=== PATIENT | female | born 1955 | race Two or more races ===

== ENCOUNTER 2024-01-28 06:25 | Inpatient (IN) | payer OTHER ==
[~2024-01-28] VITALS: Ht 177.8 cm; Wt 114.0 kg
[~2024-01-28 06:25] MED LIST: ALLO300T2 PO; AMIT10TA12 PO; ATOR10TA PO; DILT-29 PO; DULO20CA PO; GABA300T4 PO; HYDR-4795 PO; ISOS1TAB28 PO; METO25TA36 PO
[2024-01-28] MEDS: EPINEPHrine HCL 1 MG/1 ML AMP ONE ×2 (06:39→09:17)
[2024-01-28] MEDS: DexAMETHasone SOD PHOS 4 MG/1ML SDV INJ ONE (06:39)
[2024-01-28] MEDS: TRANEXAMIC ACID 20 ML ONE (06:48)
[2024-01-28] MEDS ORDERED: GLYCOPYRROLATE 0.2 MG/ML 1ML VIAL ONE (06:49)
[2024-01-28] MEDS ORDERED: PROPOFOL 10 MG/ML 20 ML IV ONE ×2 (06:49→08:24)
[2024-01-28] MEDS ORDERED: ONDANSETRON HCL 4 MG/2 ML VIAL ONE (06:52)
[2024-01-28] MEDS ORDERED: DexAMETHasone SOD PHOS 10MG/1ML VIAL INJ ONE (06:52)
[2024-01-28] MEDS ORDERED: LIDOCAINE 1% INJ PF 5ML AMP ONE (06:52)
[2024-01-28] MEDS ORDERED: KETOROLAC TROMETH 30 MG/ML 1ML VIAL ONE (06:52)
[2024-01-28] MEDS: ACETAMINOPHEN IV 100 ML IV ONE (06:56)
[2024-01-28] MEDS ORDERED: GABAPENTIN 400 MG CAP PO ONE (07:00)
[2024-01-28] MEDS: GABAPENTIN 400 MG CAP ONE (07:03)
[2024-01-28] MEDS: ceFAZolin 2 GM/D5W50ml 50 ML IV ONE (07:03)
[2024-01-28] MEDS: CELECOXIB 100 MG CAP ONE (07:03)
[2024-01-28] MEDS: CELECOXIB 100 MG CAP PO ONE (07:10)
[2024-01-28] MEDS: ACETAMINOPHEN IV 1000 MG/100ML (10MG/ML) IV ONE (07:10)
[2024-01-28] MEDS: GABAPENTIN 300 MG CAP ONE (07:13)
[2024-01-28] MEDS: GABAPENTIN 300 MG CAP PO ONE (07:15)
[2024-01-28] MEDS ORDERED: KETAMINE 50mg/ML 1ml syringe ONE (07:19)
[2024-01-28] MEDS ORDERED: SODIUM CHLORIDE LOCK 10 ML ONE (07:34)
[2024-01-28] MEDS ORDERED: ePHEDrine SULFATE 50 MG/ML AMP ONE (07:44)
[2024-01-28] MEDS: VANCOMYCIN HCL 1000 MG VL ONE (09:10)
[2024-01-28] MEDS: ROPIVACAINE 0.5% (5MG/ML) 20ML AMPULE IJ ONE (09:20)
[2024-01-28 09:44] VITALS: RESP 14; O2SAT 95
[2024-01-28] MEDS ORDERED: MORPHINE SULFATE INJ 2 MG/ml SYRG IV PRN (09:45)
[2024-01-28] MEDS ORDERED: ONDANSETRON HCL 4 MG/2 ML VIAL IV PRN ×2 (09:45→10:00)
[2024-01-28] MEDS ORDERED: NITROGLYCERIN 0.4 MG SL TAB SL PRN (09:45)
[2024-01-28] MEDS ORDERED: fentaNYL CITRATE 100 MCG/2 ML VL IV PRN (10:00)
[2024-01-28] MEDS ORDERED: FLUMAZENIL 0.1 MG/ML INJ 10ML MDV IV PRN (10:00)
[2024-01-28] MEDS ORDERED: ePHEDrine SULFATE 50 MG/ML AMP IV PRN (10:00)
[2024-01-28] MEDS ORDERED: ALLOPURINOL 300 MG PO SCH (10:00)
[2024-01-28] MEDS ORDERED: hydrALAZINE HCL 20 MG/ML VL IV PRN (10:00)
[2024-01-28] MEDS ORDERED: oxyCODONE HCL 5MG TAB PO PRN (10:00)
[2024-01-28] MEDS ORDERED: LABETALOL HCL 5 MG/ML 4ML SYRINGE IV PRN (10:00)
[2024-01-28] MEDS ORDERED: NALOXONE HCL 0.4 MG/ML VIAL IV PRN (10:00)
[2024-01-28] MEDS: HYDROmorphone HCL 2 MG/ML VL/or syr IV PRN (12:58)
[2024-01-28] MEDS: oxyCODONE HCL 5MG TAB PO PRN (13:16)
[2024-01-28] MEDS: HYDROmorphone HCL 2 MG/ML VL/or syr ONE (13:24)
[2024-01-28] MEDS: ceFAZolin 2 GM/D5W50ml 50 ML IV SCH (14:20)
[2024-01-28 15:55] VITALS: BP_SYST 102; BP_DIAS 55; BP_DIAS 58; PULSE 64; RESP 18; TEMP 98.1; O2SAT 97
[2024-01-28] MEDS: ACETAMINOPHEN 325 MG TAB PO SCH (18:00)
[2024-01-28] MEDS: KETOROLAC TROMETH 30 MG/ML 1ML VIAL IV SCH (18:04)
[2024-01-28 20:30] VITALS: BP 101/55; PULSE 72; PULSE 75; RESP 18; TEMP 98.4; O2SAT 97
[2024-01-28] MEDS: PREGABALIN 25 MG CAP PO SCH (21:50)
[2024-01-28] MEDS: AMITRIPTYLINE HCL 10 MG TAB PO SCH (21:52)
[2024-01-28 22:00] VITALS: BP 101/55; PULSE 75; RESP 18; TEMP 98.4; O2SAT 97
[2024-01-28] MEDS: SODIUM CHLORIDE 0.9% 1,000 ML IV SCH (22:23)
[2024-01-29] VITALS (8 sets, daily range): BP systolic 97–136; BP diastolic 48–74; PULSE 64–88; RESP 18–20; TEMP 79.6–98.3; O2SAT 95–99
[2024-01-29 06:33] LABS: Basophils # (auto) 0 10 ^3/uL (0-0.2); Eosinophils # (auto) 0 10 ^3/uL (0-0.8); Hematocrit 26.5 % (36.0-46.0); Hemoglobin 8.9 g/dL (12.2-16.2); Lymphocytes % (auto) 9.1 % (10.0-50.0); Mean Corpuscular Hemoglobin 32.1 pg (28.0-32.0); Mean Corpuscular Hgb Conc. 33.6 g/dL (32.0-36.0); Mean Corpuscular Volume 95.4 fL (80.0-100.0); Monocytes # (auto) 0.5 10 ^3/uL (0-1.3); Monocytes % (auto) 4.2 % (0.0-12.0); Neutrophils # (auto) 9.3 10 ^3/uL (1.6-8.6); Neutrophils % (auto) 86.7 % (37.0-80.0); Red Blood Cells 2.77 10^6/uL (4.0-5.20); Red Cell Distribution Width 13.7 % (11.8-14.3); White Blood Cell 10.8 10^3/uL (4.4-10.8)
[2024-01-29 06:37] LABS: Chloride 112 mmol/L (98-107); Potassium 4.9 mmol/L (3.5-5.1); Sodium 142 mmol/L (136-145)
[2024-01-29 06:38] LABS: Anion Gap 4 (5-15); Calcium 8.8 mg/dL (8.5-10.1); Carbon Dioxide 26 mmol/L (20-30)
[2024-01-29 06:43] LABS: BUN/Creatinine Ratio 19.8 (10.0-20.0); Blood Urea Nitrogen 21 mg/dL (9-23); Glucose 168 mg/dL (74-106)
[2024-01-29] MEDS: ALLOPURINOL 100 MG TAB PO SCH (08:09)
[2024-01-29] MEDS: APIXABAN 2.5 MG TAB PO SCH (09:14)
[2024-01-30] VITALS (7 sets, daily range): BP systolic 109–159; BP diastolic 50–96; PULSE 64–92; RESP 17–20; TEMP 97.6–99.3; O2SAT 92–100
[2024-01-30] MEDS: oxyCODONE HCL 5MG TAB PO PRN (04:30)
[2024-01-31] VITALS (13 sets, daily range): BP systolic 117–156; BP diastolic 52–96; PULSE 65–96; RESP 16–20; TEMP 97.5–99; O2SAT 85–100
[2024-01-31 13:40] LABS: Basophils # (auto) 0.1 10 ^3/uL (0-0.2); Basophils % (auto) 0.7 % (0.0-2.0); Eosinophils # (auto) 0.3 10 ^3/uL (0-0.8); Eosinophils % (auto) 3.1 % (0.0-7.0); Hematocrit 30.4 % (36.0-46.0); Lymphocytes # (auto) 3.3 10 ^3/uL (0.4-5.4); Lymphocytes % (auto) 35.2 % (10.0-50.0); Mean Corpuscular Hemoglobin 31.2 pg (28.0-32.0); Mean Corpuscular Hgb Conc. 32.9 g/dL (32.0-36.0); Mean Corpuscular Volume 94.9 fL (80.0-100.0); Monocytes # (auto) 0.6 10 ^3/uL (0-1.3); Neutrophils # (auto) 5.1 10 ^3/uL (1.6-8.6); Red Cell Distribution Width 14.1 % (11.8-14.3); White Blood Cell 9.3 10^3/uL (4.4-10.8)
[2024-01-31] MEDS ORDERED: IOHEXOL 350 MG/ML 100ML IJ ONE (16:38)
[2024-01-31] MEDS: SODIUM CHLORIDE 0.9% 1,000 ML IV SCH (17:00)
[2024-01-31] MEDS ORDERED: LACTULOSE 20Gm/30ML SOLN PO PRN (17:00)
[2024-01-31] MEDS: IPRATROPIUM BROM 0.5 MG/2.5ML INH SOL NEB PRN (20:30)
[2024-01-31] MEDS: ALBUTEROL SULF 2.5 MG/0.5ML(0.5%) NEB SOLN NEB PRN (20:30)
[2024-01-31] MEDS: DULoxetine HCL 30 MG CAP PO SCH (21:56)
[2024-01-31] MEDS: SENNA 8.6 MG TAB PO SCH (21:56)
[2024-01-31] MEDS: ATORVASTATIN 20 MG TAB PO SCH (21:56)
[2024-01-31] MEDS: METOPROLOL TARTRATE 25 MG TAB PO SCH (21:58)
[2024-02-01] VITALS (8 sets, daily range): BP systolic 118–143; BP diastolic 63–86; PULSE 69–83; RESP 16–22; TEMP 97.7–98.3; O2SAT 96–99
[2024-02-01 06:06] LABS: Basophils # (auto) 0 10 ^3/uL (0-0.2); Basophils % (auto) 0.5 % (0.0-2.0); Eosinophils # (auto) 0.5 10 ^3/uL (0-0.8); Eosinophils % (auto) 4.6 % (0.0-7.0); Hematocrit 31.7 % (36.0-46.0); Hemoglobin 10.4 g/dL (12.2-16.2); Lymphocytes # (auto) 2.9 10 ^3/uL (0.4-5.4); Lymphocytes % (auto) 28.6 % (10.0-50.0); Mean Corpuscular Hemoglobin 31.7 pg (28.0-32.0); Mean Corpuscular Hgb Conc. 32.9 g/dL (32.0-36.0); Mean Corpuscular Volume 96.4 fL (80.0-100.0); Monocytes # (auto) 0.9 10 ^3/uL (0-1.3); Monocytes % (auto) 9.3 % (0.0-12.0); Neutrophils # (auto) 5.8 10 ^3/uL (1.6-8.6); Nucleated Red Blood Cells % 0.1 %; Red Blood Cells 3.29 10^6/uL (4.0-5.20); White Blood Cell 10.2 10^3/uL (4.4-10.8)
[2024-02-01 06:14] LABS: Chloride 109 mmol/L (98-107); Sodium 142 mmol/L (136-145)
[2024-02-01 06:15] LABS: Anion Gap 5 (5-15); Calcium 9.2 mg/dL (8.7-10.4); Carbon Dioxide 28 mmol/L (20-30)
[2024-02-01 06:20] LABS: BUN/Creatinine Ratio 16.8 (10.0-20.0); Blood Urea Nitrogen 16 mg/dL (9-23); Glucose 95 mg/dL (74-106)
== END 2024-02-01 18:34 | DRG 469 ==
LOC: SUR 06:25 → OVERFLOW 09:37 → CENTRAL 16:03 → TELE-CENTR 16:04
PROVIDERS: ADMIT Orthopaedic Surgery; ATTEND Orthopaedic Surgery
PROC: 0SR906Z Replacement of Right Hip Joint with Oxidized Zirconium on Polyethylene Synthetic Substitute, Open Approach (ICD-10-PCS; principal; 2024-01-28 07:23)
DX: M16.11 Unilateral primary osteoarthritis, right hip (principal); J96.01 Acute respiratory failure with hypoxia; D62 Acute posthemorrhagic anemia; E78.00 Pure hypercholesterolemia, unspecified; F32.A Depression, unspecified; I10 Essential (primary) hypertension; Z88.0 Allergy status to penicillin
CPT/HCPCS: 36415; 71275; 72170; 73501; 80048; 85025; 86850; 86900; 86901; 87081; 94640; 97110; 97116; 97163; 97530; G0378; J0131; J0171; J1100; J1885; J2405; J2704

== ENCOUNTER 2025-05-11 09:58 | Inpatient (IN) | payer OTHER ==
[~2025-05-11] VITALS: Ht 177.8 cm; Wt 106.0 kg
[2025-05-11] VITALS (8 sets, daily range): BP systolic 96–131; BP diastolic 61–72; PULSE 68–106; RESP 14–20; TEMP 97.2–98.2; O2SAT 92–100
[~2025-05-11 09:58] MED LIST changes: +ACET500C49 PO; +ALBU1AER4 IN; +ALBUAER3 IN; +ASCO500T11 PO; +ASPI81CH59 PO; +B-CO1CAP18 PO; +CHOL20007 PO; +CYCL-837 PO; +FLUT250M2 INH; +LISI2.5T47 PO
[2025-05-11] MEDS ORDERED: MIDAZOLAM HCL 2MG/2ML 2ml VIAL (1mg/ml) ONE (10:20)
[2025-05-11] MEDS ORDERED: PROPOFOL 10 MG/ML 20 ML IV ONE (10:20)
[2025-05-11] MEDS ORDERED: fentaNYL CITRATE 100 MCG/2 ML VL ONE (10:20)
[2025-05-11] MEDS ORDERED: MORPHINE SULF PF 5 MG/10 ML VIAL ONE (10:41)
[2025-05-11] MEDS ORDERED: ACETAMINOPHEN 325 MG TAB PO PRN (13:45)
--- NOTE | 2025-05-11 13:45 | DVHOP2 ---
Operative Report - 2 Report Details Date: 05/11/25 Preop Diagnosis: Right knee degenerative arthritis Postop Diagnosis: Right knee degenerative arthritis Surgeon: Thao Lee MD Airborne Weapons Technical Manager: Cady BEASLEY Anesthesiologist: Gisell Anesthesia: Regional Drains: Siobhan closed wound suction Implant: DonJoy knee size eight femur PS, size seven tibial base plate, size 14 polyethylene, size 32 patella Consent: The patient was informed of the risks and benefits of the procedure. These include but are not limited to complications of anesthesia, postoperative infection, incomplete relief of symptoms, recurrence of symptoms, damage to blood vessels, nerves and tendons, deep venous thrombosis, pulmonary embolism and possible need for repeat surgery in the future. Complications: None Estimated Blood Loss: 100 cc Fluids: See anesthesia record Findings: Denuded cartilage with eburnated bone, osteophytes Indications for Surgery: Right knee degenerative arthritis with severe pain and functional impairment despite nonoperative management Name of Procedure Performed Right total knee arthroplasty Procedure Details Procedure Details: The patient was brought to the operating room and placed on the table in the supine position after being given spinal anesthetic with adequate analgesia obtained. Surgical timeout was performed verifying patient, laterality and procedure Preop patient received IV cefepime IV Ancef and IV tranexamic acid. Tourniquet was applied to the lower extremity. Lower extremity was prepped and draped in sterile fashion. Extremity was elevated, exsanguinated Esmarch, and tourniquet inflated. Midline incision was made followed by medial arthrotomy. I exposed the anterior medial and lateral tibial plateau and the anterior distal femur. Bovie and aqua mantis were used for hemostasis. I excised the anterior meniscal tissue with Bovie. I excised a portion of the fat pad with Bovie. The patella was everted and the knee flexed. I drilled the distal femur and suctioned the hole to reduce the risk of fat emboli. I inserted intramedullary guide with 5 degree valgus setting. I pinned the distal femoral cutting block anteriorly. Intramedullary gisell was removed. Distal femoral cut was made and the block removed. I brought my attention to the tibia setting up the external cutting jig for the tibia paying attention to slope, rotation and varus valgus alignment. I set the depth and pinned the block. I used the external alignment gisell to aid in checking alignment. Bone cut was made and bone removed releasing soft tissue attachments with Bovie. Cutting block removed. I then checked the extension gap and deemed adequate and removed the femur and tibia pins. I flexed the knee and applied the femoral sizing guide to the femur. I checked the size and external rotation setting at 90 degrees to Whitesides line and checking the epicondylar axis. I drilled the holes then removed the sizing guide and pin. I then tapped on the 4 in 1 cutting block and checked with the maddie wing anteriorly to make sure that I would not notch then pinned the block. Cuts were made and the block and pins were removed. Bone was removed with curved osteotome. I used a rongeur to remove any remaining osteophytes at the femur and tibia. I then used a lamina aircraft pneudraulics repairer to open up the back alternating between the medial and lateral side. Any remaining meniscal tissue was excised with scalpel. I used curved osteotome, curette and rongeur to remove any posterior osteophytes. I prophylactically coagulated with aqua mantis. I then tapped on the template for the box cut and pinned it. Box cut was made and bone removed. Template and pin removed. I then tapped on the femoral trial. I then brought my attention back to the tibia sizing it. I used the external alignment gisell to make sure that rotation and alignment were good. I made a Bovie clint at the tibial tray clint identifying rotation for later use. I tried various tibial polytrials. [I then brought my attention to the patella. I sequentially dissected soft tissue with Bovie. I checked the thickness with caliper. I set the appropriate depth of cut on the cutting guide. I attached the cutting guide made my cut. I then sized the patella and made my drill holes. I then placed the patella trial with appropriate depth based on overall precut thickness. ] The patella tracked nicely without thumb pressure. I removed the trials. I pinned the tray and used the reamer and keel punch. The implants were brought into the field while bone preparation was started. I used both normal saline irrigation and the CarboJet to prepare the bone. I used the bone from the cuts to graft the femoral tunnel. Once cement was ready I applied cement to the tibial implant and tibial bone tapped it on and removed excess cement in usual fashion. In similar fashion I tapped on the femoral implant. I inserted the trial polyethylene and brought the knee into 30 degrees flexion. [I then applied the patella implant in similar fashion holding pressure with the pressurization device.] I irrigated with bactisurge irrigant. Once cement cured, I checked stability and range of motion as well as patella tracking. tourniquet was released and hemostasis maintained with aqua mantis. I inserted the polyethylene and again checked stability. I used a 2 grams of vancomycin half of which was placed deep and half superficial. I repaired the extensor mechanism with the knee in flexion with #1 Ethibond interrupted [id number]. Deep subcutaneous tissue was closed with 0 Vicryl. Superficial subcutaneous tissue was closed with 2-0 vicryl interrupted. Skin was closed with niya. I then applied the [siobhan closed wound suction]. Patient tolerated the procedure well and was brought to recovery room in stable condition. Condition Stable Disposition Still a Patient THAO LEE MD May 11, 2025 13:45
[2025-05-11] MEDS ORDERED: ALBUTEROL SULF HFA 90MCG INH 200DOSE IN SCH (14:00)
[2025-05-11] MEDS ORDERED: ONDANSETRON ODT 4 MG TAB PO PRN (14:00)
[2025-05-11] MEDS ORDERED: ceFAZolin 2 GM/D5W50ml 50 ML IV SCH (14:00)
--- NOTE | 2025-05-11 14:41 | DVH ---
EXAM: XY R KNEE 3V XRAY CLINICAL INDICATION: Postop TECHNIQUE: XY R KNEE 3V XRAY Comparison: XR KNEE RIGHT 3 VIEW on DOS: 01/29/25, CR KNEE RIGHT 4-5 VIEW on DOS: 03/26/24 FINDINGS/IMPRESSION: Right total knee arthroplasty. Surgical skin niya. Soft tissue swelling
[2025-05-11] MEDS: ROPIVACAINE 0.5% (5MG/ML) 20ML AMPULE IJ ONE ×2 (15:02→15:06)
[2025-05-11] MEDS: KETOROLAC TROMETH 30 MG/ML 1ML VIAL ONE (15:03)
[2025-05-11] MEDS: TRANEXAMIC ACID 20 ML ONE (15:04)
[2025-05-11] MEDS: VANCOMYCIN HCL 1000 MG VL ONE (15:04)
[2025-05-11] MEDS: BUPIVACAINE 0.25% INJ 50ML VIAL ONE (15:05)
[2025-05-11] MEDS: ceFAZolin 2 GM/D5W50ml 50 ML IV ONE (15:05)
[2025-05-11] MEDS: CEFEPIME 1GM/50ML 50 ML IV ONE (15:05)
[2025-05-11] MEDS ORDERED: ONDANSETRON HCL 4 MG/2 ML VIAL IV PRN (16:15)
[2025-05-11] MEDS ORDERED: NALOXONE HCL 0.4 MG/ML VIAL IV PRN (16:15)
[2025-05-11] MEDS ORDERED: FLUMAZENIL 0.1 MG/ML INJ 10ML MDV IV PRN (16:15)
[2025-05-11] MEDS ORDERED: fentaNYL CITRATE 100 MCG/2 ML VL IV PRN (16:15)
[2025-05-11] MEDS ORDERED: hydrALAZINE HCL 20 MG/ML VL IV PRN (16:15)
[2025-05-11] MEDS: HYDROmorphone HCL 2 MG/ML VL/or syr ONE (16:20)
[2025-05-11] MEDS: HYDROmorphone HCL 2 MG/ML VL/or syr IV PRN (16:25)
[2025-05-11] MEDS: ALBUTEROL SULF 2.5 MG/0.5ML(0.5%) NEB SOLN NEB PRN (16:54)
[2025-05-11] MEDS: D5W/LACTATED RINGERS 1,000 ML IV SCH (17:00)
[2025-05-11] MEDS: ACETAMINOPHEN 325 MG TAB PO SCH (18:00)
[2025-05-11] MEDS: AMITRIPTYLINE HCL 10 MG TAB PO SCH (18:00)
[2025-05-11] MEDS: ceFAZolin 2 GM/D5W50ml 50 ML IV SCH (20:00)
[2025-05-11] MEDS: PREGABALIN 25 MG CAP PO SCH (21:52)
[2025-05-11] MEDS ORDERED: ISOSORBIDE MONONITRATE 20 MG TAB PO SCH (22:00)
[2025-05-11] MEDS: ISOSORBIDE MONONITRATE 20 MG TAB PO SCH (22:00)
[2025-05-12] VITALS (10 sets, daily range): BP systolic 117–151; BP diastolic 80–89; PULSE 80–106; RESP 17–22; TEMP 97.3–99.3; O2SAT 88–100
[2025-05-12] MEDS: KETOROLAC TROMETH 30 MG/ML 1ML VIAL IV ONE (00:07)
[2025-05-12] MEDS: LORazepam 0.5 MG TAB PO PRN (00:20)
[2025-05-12] MEDS: ceFAZolin 2 GM/D5W50ml 50 ML IV SCH (00:27)
[2025-05-12 06:38] LABS: Hematocrit 30.4 % (36.0-46.0); Hemoglobin 10.4 g/dL (12.2-16.2); Mean Corpuscular Hemoglobin 32.4 pg (28.0-32.0); Mean Corpuscular Volume 94.6 fL (80.0-100.0); Nucleated Red Blood Cells % 0.0 %
[2025-05-12 06:40] LABS: Anion Gap 7 (5-15); Carbon Dioxide 28 mmol/L (20-31); Chloride 105 mmol/L (98-107); Potassium 5.0 mmol/L (3.5-5.1); Sodium 140 mmol/L (136-145)
[2025-05-12 06:42] LABS: Calcium 9.1 mg/dL (8.7-10.4)
[2025-05-12 06:46] LABS: BUN/Creatinine Ratio 13.6 (10.0-20.0); Blood Urea Nitrogen 17 mg/dL (9-23)
[2025-05-12 06:47] LABS: Glucose 135 mg/dL (74-106)
[2025-05-12] MEDS: ALLOPURINOL 100 MG TAB PO SCH (09:42)
[2025-05-12] MEDS ORDERED: ALLOPURINOL 300 MG PO SCH (10:00)
[2025-05-12] MEDS ORDERED: METOPROLOL SUCCINATE XL 50 MG TAB PO SCH ×2 (10:00)
--- NOTE | 2025-05-12 12:35 | DVHDS2 ---
Discharge Summary Date of Admission May 11, 2025 at 13:41 Date of Discharge: May 12, 2025 Labs/Diagnostic Data: Laboratory Results Test 05/12/25 04:43 White Blood Count 8.1 10^3/uL (4.4-10.8) Red Blood Count 3.21 10^6/uL (4.0-5.20) Hemoglobin 10.4 g/dL (12.2-16.2) Hematocrit 30.4 % (36.0-46.0) Mean Corpuscular Volume 94.6 fL (80.0-100.0) Mean Corpuscular Hemoglobin 32.4 pg (28.0-32.0) Mean Corpuscular Hemoglobin Concent 34.2 g/dL (32.0-36.0) Red Cell Distribution Width 14.1 % (11.8-14.3) Platelet Count 208 10^3/uL (140-450) Mean Platelet Volume 9.9 fL (6.9-10.8) Neutrophils (%) (Auto) 60.3 % (37.0-80.0) Lymphocytes (%) (Auto) 26.7 % (10.0-50.0) Monocytes (%) (Auto) 9.5 % (0.0-12.0) Eosinophils (%) (Auto) 2.9 % (0.0-7.0) Basophils (%) (Auto) 0.6 % (0.0-2.0) Neutrophils # (Auto) 4.9 10 ^3/uL (1.6-8.6) Lymphocytes # (Auto) 2.2 10 ^3/uL (0.4-5.4) Monocytes # (Auto) 0.8 10 ^3/uL (0-1.3) Eosinophils # (Auto) 0.2 10 ^3/uL (0-0.8) Basophils # (Auto) 0 10 ^3/uL (0-0.2) Nucleated Red Blood Cells 0.0 % Sodium Level 140 mmol/L (136-145) Potassium Level 5.0 mmol/L (3.5-5.1) Chloride Level 105 mmol/L (98-107) Carbon Dioxide Level 28 mmol/L (20-31) Anion Gap 7 (5-15) Blood Urea Nitrogen 17 mg/dL (9-23) Creatinine 1.25 mg/dL (0.550-1.02) Glomerular Filtration Rate Calc 47 mL/min (>90) BUN/Creatinine Ratio 13.6 (10.0-20.0) Serum Glucose 135 mg/dL (74-106) Calcium Level 9.1 mg/dL (8.7-10.4) Other Laboratory Tests 05/12/25 04:43 Brief Hx & Hospital Course: Patient was brought to the hospital yesterday to undergo a right total knee arthroplasty. She tolerated the procedure well without complications and was kept overnight for postoperative observation. Patient has remained medically stable denying any overnight events although she does reports severe postoperative knee pain that is limiting her physical activity and ability to ambulate. Patient notes that she has tried performing gentle [id number] exercise in bed but is limited due to the pain. Patient reports that she has not yet been able to get up and walk with the help of physical therapy as she was still feeling the effects of her spinal anesthesia yesterday afternoon. Patient expressed her wishes to be transferred to a nursing home facility for further assistance during the acute phase of her rehabilitation. Condition at Discharge: Stable Final Diagnosis/Problems List Right knee degenerative arthritis Discharge Disposition: Longterm Facility Discharge Instruct/Medications Diet: Regular Activity: See Comment Activity comment: Patient to remain weight-bearing as tolerated with the assistance of a walker Follow Up/Referral: I instructed the patient to follow up with our office in 10-14 days for her 1st postoperative evaluation Medications: Rx sent via our outpatient EMR system Scheduled Allopurinol (Allopurinol), 300 MG PO DAILY, (Reported) Amitriptyline Hcl (Amitriptyline Hcl), 4 TAB PO QPM, (Reported) Ascorbic Acid (Vitamin C Tablet), 1 TAB PO DAILY, (Reported) Aspirin (Aspirin Low Dose), 1 TAB PO DAILY, (Reported) Atorvastatin Calcium (Lipitor), Unknown Dose PO QPM, (Reported) Cholecalciferol (Vitamin D3), 1 TAB PO DAILY, (Reported) Duloxetine Hcl (Cymbalta), Unknown Dose PO TID, (Reported) Fluticasone-Salmeterol (Advair Diskus 250/50), 1 PUFF INH BID, (Reported) Gabapentin (Once-Daily) (Gabapentin), 2 TAB PO TID, (Reported) Hydrocodone-Acetaminophen (Hydrocodone Bitartrate/AC 7.5-325 mg), 1 TAB PO TID, (Reported) Isosorbide Mononitrate (Isosorbide Mononitrate Er), Unknown Dose PO BID, (Reported) Lisinopril (Lisinopril), 10 MG PO DAILY, (Reported) Metoprolol Succinate (Toprol Xl), Unknown Dose PO BID, (Reported) Scheduled PRN Cyclobenzaprine Hcl (Cyclobenzaprine Hcl), 10 MG PO Q8HP PRN for prn, (Reported) Miscellaneous Medications Acetylcarnitine HCl(l-Acetylca (Acetyl l-Carnitine Hydroc), 500 MG PO, (Reported) Albuterol Sulfate (Ventolin Mdi), 90 MCG IN, (Reported) Albuterol Sulfate (Proair Respiclick), 108 MCG IN, (Reported) B-Complex Vitamins (Vitamin B Complex), 1 CAP PO, (Reported) Diltiazem Hcl (Diltiazem Hcl Er), Unknown Dose PO, (Reported) Discharge Statement: "Patient was advised to return to the ER or call 911 if any headaches, dizziness, shortness of breath, chest pain, abdominal pain, bleeding, fevers, or worsening of medical condition. Patient was counseled about treatment plan, medications, possible side effects, patientverbalized understanding. All questions were answered to the best of my ability. This discharge took greater then 30 minutes in planning, reviewing documentation, counseling the patient, and discussing with other team members." ASSESSMENT ASSESSMENT Assessment Right knee degenerative arthritis DAVY WHEAT May 12, 2025 12:35
--- NOTE | 2025-05-12 12:37 | DVHPN2 ---
Progress Note - Dictate Date Seen: May 12, 2025 Medical Necessity Reason Pt with a Central, PICC or Fol: No Subjective Patient was sitting up comfortably in bed during my evaluation reports some postoperative knee pain that is only mildly improved with the help pain medication. Patient reports that she has not yet gotten up and walk with the help of physical therapy as she was still feeling the effects of her spinal anesthesia yesterday afternoon and has tried performing gentle [id number] exercises while in bed this morning but is limited due to the pain. Patient expressed her wishes to be transferred to [facility] for further assistance during the acute phase of her rehabilitation. vital signs Vital Sign Date Time Temp Pulse Resp B/P (MAP) Pulse Ox O2 Delivery O2 Flow Rate FiO2 05/12/25 09:57 93 Room Air 05/12/25 09:57 0 21 05/12/25 09:53 130/86 05/12/25 09:41 103 05/12/25 09:13 98.0 18 98.0 Total Intake and Output 05/11/25 05/11/25 05/12/25 15:00 23:00 07:00 Intake Total 100 ml 1090 ml Balance 100 ml 1090 ml medications Current Medications Medications Dose Ordered Sig/Glenis Route Start Time Stop Time Status Last Admin Dose Admin Albuterol 90 mcg TID IN 05/11/25 14:00 UNV Amitriptyline HCl 40 mg QPM PO 05/11/25 18:00 05/11/25 18:00 40 MG Patient Own Medication 300 mg DAILY PO 05/12/25 10:00 UNV Albuterol 2.5 mg Q6HPRN PRN NEB 05/11/25 13:45 05/11/25 16:54 2.5 MG Dextrose/Lactated Ringer's 1,000 ml @ 100 mls/hr Q10H IV 05/11/25 13:45 05/12/25 08:48 100 MLS/HR Acetaminophen 650 mg Q4HP PRN PO 05/11/25 13:45 Acetaminophen 650 mg Q6HR PO 05/11/25 18:00 05/12/25 06:14 650 MG Pregabalin 50 mg BID PO 05/11/25 22:00 05/12/25 09:43 50 MG Oxycodone HCl 5 mg Q4HP PRN PO 05/11/25 13:45 Oxycodone HCl 10 mg Q4HP PRN PO 05/11/25 13:45 05/12/25 06:14 10 MG Aspirin 81 mg BID PO 05/12/25 10:00 05/12/25 09:42 81 MG Isosorbide Mononitrate 30 mg BID PO 05/11/25 22:00 05/12/25 09:53 30 MG Metoprolol Succinate 50 mg BID PO 05/12/25 10:00 Hold Diltiazem HCl 180 mg DAILY PO 05/12/25 10:00 05/12/25 09:41 180 MG Duloxetine HCl 60 mg DAILY PO 05/12/25 10:00 05/12/25 09:43 60 MG Ondansetron HCl 4 mg Q6HP PRN PO 05/11/25 14:00 Lorazepam 1 mg DAILY PRN PO 05/11/25 14:00 05/12/25 00:20 1 MG Allopurinol 300 mg DAILY PO 05/12/25 10:00 05/12/25 09:42 300 MG Oxycodone HCl 10 mg ONCE PRN PO 05/11/25 16:15 objective A&O x4 in no acute distress Knee range of motion grossly limited with pain on movement Jerri dressing clean, dry, intact, and maintaining suction No distal edema or calf tenderness to palpation Neurovascularly intact with cap refill less than 2 seconds laboratory and microbiology Laboratory Tests 05/12/25 04:43 Test 05/12/25 04:43 Range/Units Serum Glucose 135 H 74-106 mg/dL Assessment/Plan We will be transferring the patient to half-way facility for further assistance during the acute phase of her rehabilitation and advised the patient to remain weight-bearing as tolerated with the assistance of a walker. I also instructed the patient to schedule a follow up with our office in approximately 10-14 days for her 1st postoperative evaluation. I instructed the patient to maintain her dressings clean, dry, intact, and maintaining suction and to call our office if she has any further questions or concerns. Rx sent via our outpatient EMR system. Patient understood and agreed. Plan discussed with: Patient DAVY WHEAT May 12, 2025 12:37
--- NOTE | 2025-05-12 14:13 | DVHINCON2 ---
Date Seen: May 11, 2025 Referring Physician Orthopedic surgeon. Reason for Consultation Medical management. History of Present Illness 70-year-old female with a known history of hypertension, dyslipidemia, history of depression currently not in decompensation, previous history of right hip s urgery, status post left total knee arthroplasty, initially presented to the hospital with a degenerative joint disease of the right knee currently being admitted for elective surgery. Patient is status post right total knee arthroplasty. Patient is complaining of 10/10 pain in the right knee, denies any fevers chills cough nausea and vomiting diarrhea hematemesis hematochezia me javi dysuria hematuria. Past Surgical History Status post right total hip arthroplasty Status post left total knee arthroplasty, Back surgeries. Family History: Patient reports no known family medical history. Allergies: Coded Allergies: Penicillins (Verified Allergy, Unknown, 05/11/25) Alendronate (Unverified Adverse Reaction, Intermediate, jaw pain, 01/24/24) Home Meds Reported Medications Acetylcarnitine HCl(l-Acetylca (Acetyl l-Carnitine Hydroc) 500 Mg Cap, 500 MG PO, CAP 05/07/25 B-Complex Vitamins (Vitamin B Complex) 1 Cap Cap, 1 CAP PO, CAP 05/07/25 Ascorbic Acid (VITAMIN C TABLET) 500 Mg Tb, 1 TAB PO DAILY, #30 TAB 05/07/25 Albuterol Sulfate (Proair Respiclick) 108 Mcg/Act Aer, 108 MCG IN, AER 05/07/25 Cholecalciferol (VITAMIN D3) 2,000 Unit Tab, 1 TAB PO DAILY, #90 TAB 3 Refills 05/07/25 Aspirin (Aspirin Low Dose) 81 Mg Chw, 1 TAB PO DAILY, #90 TAB 3 Refills 05/07/25 Albuterol Sulfate (VENTOLIN MDI) 90 Mcg Ih, 90 MCG IN, INH 05/07/25 Fluticasone-Salmeterol (Advair Diskus 250/50) 1 Puff Ih, 1 PUFF INH BID, #1 IN HALER 5 Refills 05/07/25 Lisinopril (Lisinopril) 2.5 Mg Tab, 10 MG PO DAILY, TAB 05/07/25 Cyclobenzaprine Hcl (Cyclobenzaprine Hcl) 5 Mg Tab, 10 MG PO Q8HP PRN for prn, TAB 05/07/25 Hydrocodone-Acetaminophen (Hydrocodone Bitartrate/AC 7.5-325 mg) 1 Tab Tab, 1 TAB PO TID, TAB 01/24/24 Allopurinol (Allopurinol) 300 Mg Tab, 300 MG PO DAILY, TAB 01/24/24 Diltiazem Hcl (DILTIAZEM HCL ER) Unknown Strength Cap, PO, CAP 01/24/24 Duloxetine Hcl (Cymbalta) Unknown Strength Cap, PO TID, CAP 01/24/24 Atorvastatin Calcium (Lipitor) Unknown Strength Tab, PO QPM, TAB 01/24/24 Gabapentin (Once-Daily) (Gabapentin) 300 Mg Tab, 2 TAB PO TID, TAB 01/24/24 Isosorbide Mononitrate (Isosorbide Mononitrate Er) Unknown Strength Tab, PO BID, TAB 01/24/24 Amitriptyline Hcl (Amitriptyline Hcl) 10 Mg Tab, 4 TAB PO QPM, TAB 01/24/24 Metoprolol Succinate (Toprol Xl) Unknown Strength Tab, PO BID, TAB 01/24/24 Current Medications Current Medications Medications (Trade) Dose Ordered Sig/Glenis Route PRN Reason Start Time Stop Time Status Last Admin Amitriptyline HCl (Elavil Tablet) 40 mg QPM PO 05/11/25 18:00 05/11/25 18:00 Patient Own Medication 300 mg DAILY PO 05/12/25 10:00 UNV Isosorbide Mononitrate (Ismo Tablet) 10 mg BID PO 05/11/25 22:00 05/11/25 13:58 DC Metoprolol Succinate (Toprol Xl) 25 mg DAILY PO 05/12/25 10:00 05/11/25 13:58 DC Acetaminophen (Tylenol Tablet) 650 mg Q6HR PO 05/11/25 18:00 05/12/25 06:14 Pregabalin (Lyrica Capsule) 50 mg BID PO 05/11/25 22:00 05/12/25 09:43 Aspirin 81 mg BID PO 05/12/25 10:00 05/12/25 09:42 Isosorbide Mononitrate (Ismo Tablet) 30 mg BID PO 05/11/25 22:00 05/12/25 09:53 Metoprolol Succinate (Toprol Xl) 50 mg BID PO 05/12/25 10:00 Hold Diltiazem HCl (Cardizem LA Capsule) 180 mg DAILY PO 05/12/25 10:00 05/12/25 09:41 Duloxetine HCl (Cymbalta Capsule) 60 mg DAILY PO 05/12/25 10:00 05/12/25 09:43 Allopurinol (Zyloprim Tablet) 300 mg DAILY PO 05/12/25 10:00 05/12/25 09:42 Cefazolin Sodium/ Dextrose 50 ml @ 50 mls/hr Q8HR IV 05/11/25 20:00 05/11/25 22:59 DC Ondansetron HCl (Zofran) 4 mg ONCE PRN IV NAUSEA / VOMITING 05/11/25 16:15 05/11/25 16:20 DC Naloxone HCl (Narcan) 0.4 mg Q10M PRN IV NARCOTIC REVERSAL 05/11/25 16:15 05/11/25 16:36 DC Flumazenil (Romazicon Injection) 0.2 mg ONCE PRN IV BENZODIAZEPINE REVERSAL 05/11/25 16:15 05/11/25 16:20 DC Hydralazine HCl (Apresoline Injection) 5 mg Q10M PRN IV SBP>160 05/11/25 16:15 05/11/25 17:06 DC Ephedrine Sulfate (ePHEDrine SULFATE) 10 mg Q10M PRN IV SBP LESS THAN 90 05/11/25 16:15 05/11/25 16:56 DC Fentanyl Citrate 25 mcg Q1HP PRN IV BREAKTHROUGH PAIN (7-10) 05/11/25 16:15 05/11/25 16:20 DC Hydromorphone HCl (Dilaudid Injection) 0.5 mg Q10M PRN IV SEVERE PAIN (7-10 PAIN SCALE) 05/11/25 16:15 05/11/25 16:56 DC 05/11/25 16:25 Oxycodone HCl 10 mg ONCE PRN PO MODERATE PAIN (4-6 PAIN SCALE) 05/11/25 16:15 Cefazolin Sodium/ Dextrose 50 ml @ 50 mls/hr Q8H IV 05/12/25 00:30 05/12/25 09:29 DC 05/12/25 08:30 Review of Systems Twelve review of system are negative besides mentioned above. 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 Labs/Diagnostic Data Labs Test 05/12/25 04:43 Range/Units White Blood Count 8.1 4.4-10.8 10^3/uL Red Blood Count 3.21 L 4.0-5.20 10^6/uL Hemoglobin 10.4 L 12.2-16.2 g/dL Hematocrit 30.4 L 36.0-46.0 % Mean Corpuscular Volume 94.6 80.0-100.0 fL Mean Corpuscular Hemoglobin 32.4 H 28.0-32.0 pg Mean Corpuscular Hemoglobin Concent 34.2 32.0-36.0 g/dL Red Cell Distribution Width 14.1 11.8-14.3 % Platelet Count 208 140-450 10^3/uL Mean Platelet Volume 9.9 6.9-10.8 fL Neutrophils (%) (Auto) 60.3 37.0-80.0 % Lymphocytes (%) (Auto) 26.7 10.0-50.0 % Monocytes (%) (Auto) 9.5 0.0-12.0 % Eosinophils (%) (Auto) 2.9 0.0-7.0 % Basophils (%) (Auto) 0.6 0.0-2.0 % Neutrophils # (Auto) 4.9 1.6-8.6 10 ^3/uL Lymphocytes # (Auto) 2.2 0.4-5.4 10 ^3/uL Monocytes # (Auto) 0.8 0-1.3 10 ^3/uL Eosinophils # (Auto) 0.2 0-0.8 10 ^3/uL Basophils # (Auto) 0 0-0.2 10 ^3/uL Nucleated Red Blood Cells 0.0 % Sodium Level 140 136-145 mmol/L Potassium Level 5.0 3.5-5.1 mmol/L Chloride Level 105 98-107 mmol/L Carbon Dioxide Level 28 20-31 mmol/L Anion Gap 7 5-15 Blood Urea Nitrogen 17 9-23 mg/dL Creatinine 1.25 H 0.550-1.02 mg/dL Glomerular Filtration Rate Calc 47 >90 mL/min BUN/Creatinine Ratio 13.6 10.0-20.0 Serum Glucose 135 H 74-106 mg/dL Calcium Level 9.1 8.7-10.4 mg/dL Assessment 70-year-old female with a known history of hypertension, dyslipidemia, history of depression currently not in decompensation presented to the hospital for elective surgery. 1. Hypertension controlled 2. Dyslipidemia 3. History of depression currently not in decompensation 4. Morbid obesity classI 5. 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 Plan discussed with: Patient Date of Service: May 11, 2025 Billing Provider: ROSA MANDEL MD Common Visit Codes: NOT BILLABLE ROSA MANDEL MD May 12, 2025 14:12
--- NOTE | 2025-05-12 14:20 | DVHPN2 ---
Subjective Patient is complaining of 10/10 pain in the right knee. Changes from previous H/P or p: No Changes Objective Vitals Vital Signs Date Time Temp Pulse Resp B/P (MAP) Pulse Ox O2 Delivery O2 Flow Rate FiO2 05/12/25 09:57 93 Room Air 05/12/25 09:57 0 21 05/12/25 09:53 130/86 05/12/25 09:41 103 05/12/25 09:13 98.0 18 98.0 Intake/Output Intake and Output 05/12/25 07:00 Intake Total 1190 ml Balance 1190 ml Intake Oral 1040 ml IV Total 150 ml # Voids 6 Exam HEENT pupils are reactive Neck is supple CV is S1-S2 regular rate and rhythm Respiratory are clear GI positive bowel sounds Extremity no pedal edema [employer] no motor deficit Medications Current Medications Medications Dose Ordered Sig/Glenis Route Start Time Stop Time Status Last Admin Dose Admin Albuterol 90 mcg TID IN 05/11/25 14:00 UNV Amitriptyline HCl 40 mg QPM PO 05/11/25 18:00 05/11/25 18:00 Patient Own Medication 300 mg DAILY PO 05/12/25 10:00 UNV Albuterol 2.5 mg Q6HPRN PRN NEB 05/11/25 13:45 05/11/25 16:54 Dextrose/Lactated Ringer's 1,000 ml @ 100 mls/hr Q10H IV 05/11/25 13:45 05/12/25 08:48 Acetaminophen 650 mg Q4HP PRN PO 05/11/25 13:45 Acetaminophen 650 mg Q6HR PO 05/11/25 18:00 05/12/25 06:14 Pregabalin 50 mg BID PO 05/11/25 22:00 05/12/25 09:43 Oxycodone HCl 5 mg Q4HP PRN PO 05/11/25 13:45 05/12/25 14:02 Oxycodone HCl 10 mg Q4HP PRN PO 05/11/25 13:45 05/12/25 06:14 Aspirin 81 mg BID PO 05/12/25 10:00 05/12/25 09:42 Isosorbide Mononitrate 30 mg BID PO 05/11/25 22:00 05/12/25 09:53 Metoprolol Succinate 50 mg BID PO 05/12/25 10:00 Hold Diltiazem HCl 180 mg DAILY PO 05/12/25 10:00 05/12/25 09:41 Duloxetine HCl 60 mg DAILY PO 05/12/25 10:00 05/12/25 09:43 Ondansetron HCl 4 mg Q6HP PRN PO 05/11/25 14:00 Lorazepam 1 mg DAILY PRN PO 05/11/25 14:00 05/12/25 00:20 Allopurinol 300 mg DAILY PO 05/12/25 10:00 05/12/25 09:42 Oxycodone HCl 10 mg ONCE PRN PO 05/11/25 16:15 Laboratory Results Laboratory Tests 05/12/25 04:43 Chemistry Test 05/12/25 04:43 Calcium Level 9.1 mg/dL (8.7-10.4) Assessment/Plan Assessment/Plan 70-year-old female with a known history of hypertension, dyslipidemia, history of depression currently not in decompensation presented to the hospital for elective surgery. 1. Hypertension controlled 2. Dyslipidemia 3. History of depression currently not in decompensation 4. Morbid obesity classI 5. 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 -discharge plan per Orthopedics. Plan discussed with: Patient Date of Service: May 12, 2025 Billing Provider: ROSA MANDEL MD Common Visit Codes: NOT BILLABLE ROSA MANDEL MD May 12, 2025 14:20
[2025-05-12] MEDS ORDERED: TRANEXAMIC ACID 1,000 mg/10ml INJ VIAL IV ONE (17:25)
[2025-05-12] MEDS: HYDROmorphone HCL 2 MG/ML VL/or syr IV PRN (17:53)
[2025-05-12] MEDS ORDERED: METOPROLOL TARTRATE 25 MG TAB PO SCH (22:00)
[2025-05-12] MEDS ORDERED: METOPROLOL TARTRATE 50 MG TAB PO SCH (22:00)
[2025-05-12] MEDS: METOPROLOL TARTRATE 50 MG TAB PO SCH (22:06)
[2025-05-13] VITALS (8 sets, daily range): BP systolic 107–130; BP diastolic 54–86; PULSE 65–88; RESP 18–20; TEMP 97.6–98.2; O2SAT 27–97
[2025-05-13] MEDS: OXYCODONE W/ ACETAMINOPHEN 5/325MG TABLET PO PRN (03:34)
--- NOTE | 2025-05-13 17:52 | DVHPN2 ---
Progress Note - Dictate Date Seen: May 13, 2025 Medical Necessity Reason Pt with a Central, PICC or Fol: No Subjective Patient was sitting up comfortably in bed during my evaluation reports some postoperative knee pain that is only mildly improved with the help pain medication. Patient reports that she has been able to get up and walk with the help of physical therapy and her walker and was able to get take a few steps outside of her bedroom and back to her bed. Patient was kept an additional night for better pain control as yesterday her pain was severe limiting her ambulation and was unable to leave but is ready to be transferred today. vital signs Vital Sign Date Time Temp Pulse Resp B/P (MAP) Pulse Ox O2 Delivery O2 Flow Rate FiO2 05/13/25 16:42 98.2 72 18 130/79 (96) 96 98.2 05/13/25 12:25 Nasal Cannula* 2 28 Total Intake and Output 05/12/25 05/12/25 05/13/25 15:00 23:00 07:00 Intake Total 1000 ml 700 ml 500 ml Balance 1000 ml 700 ml 500 ml medications Current Medications Medications Dose Ordered Sig/Glenis Route Start Time Stop Time Status Last Admin Dose Admin Albuterol 90 mcg TID IN 05/11/25 14:00 UNV Amitriptyline HCl 40 mg QPM PO 05/11/25 18:00 05/13/25 17:32 40 MG Patient Own Medication 300 mg DAILY PO 05/12/25 10:00 UNV Albuterol 2.5 mg Q6HPRN PRN NEB 05/11/25 13:45 05/13/25 12:25 2.5 MG Dextrose/Lactated Ringer's 1,000 ml @ 100 mls/hr Q10H IV 05/11/25 13:45 05/13/25 16:01 100 MLS/HR Acetaminophen 650 mg Q4HP PRN PO 05/11/25 13:45 Acetaminophen 650 mg Q6HR PO 05/11/25 18:00 05/13/25 17:32 650 MG Pregabalin 50 mg BID PO 05/11/25 22:00 05/13/25 10:52 50 MG Aspirin 81 mg BID PO 05/12/25 10:00 05/13/25 10:53 81 MG Isosorbide Mononitrate 30 mg BID PO 05/11/25 22:00 05/13/25 10:44 30 MG Metoprolol Succinate 50 mg BID PO 05/12/25 10:00 Cancel Diltiazem HCl 180 mg DAILY PO 05/12/25 10:00 05/13/25 10:51 180 MG Duloxetine HCl 60 mg DAILY PO 05/12/25 10:00 05/13/25 10:49 60 MG Ondansetron HCl 4 mg Q6HP PRN PO 05/11/25 14:00 Lorazepam 1 mg DAILY PRN PO 05/11/25 14:00 05/13/25 04:22 1 MG Allopurinol 300 mg DAILY PO 05/12/25 10:00 05/13/25 10:44 300 MG Oxycodone/ Acetaminophen 1 tab Q4HP PRN PO 05/12/25 16:45 05/13/25 17:41 1 TAB Hydromorphone HCl 1 mg Q2HP PRN IV 05/12/25 16:45 05/12/25 17:53 1 MG Oxycodone HCl 10 mg Q12HR PO 05/12/25 22:00 05/13/25 10:51 10 MG Metoprolol Tartrate 50 mg BID PO 05/12/25 22:00 Cancel Metoprolol Tartrate 25 mg BID PO 05/12/25 22:00 Cancel Metoprolol Tartrate 50 mg BID PO 05/12/25 22:00 05/13/25 10:48 50 MG objective A&O x4 in no acute distress Knee range of motion grossly limited with pain on movement Jerri dressing clean, dry, intact, and maintaining suction No distal edema or calf tenderness to palpation Neurovascularly intact with cap refill less than 2 seconds laboratory and microbiology Laboratory Tests 05/12/25 04:43 Test 05/12/25 04:43 Range/Units Serum Glucose 135 H 74-106 mg/dL Assessment/Plan We will be transferring the patient to [facility] facility for further assistance during the acute phase of her rehabilitation and advised the patient to remain weight-bearing as tolerated with the assistance of a walker. I also instructed the patient to schedule a follow up with our office in approximately 10-14 days for her 1st postoperative evaluation. I instructed the patient to maintain her dressings clean, dry, intact, and maintaining suction and to call our office if she has any further questions or concerns. Rx sent via our outpatient EMR system. Patient understood and agreed. Plan discussed with: Patient DAVY WHEAT May 13, 2025 17:52
== END 2025-05-13 15:37 | DRG 470 ==
LOC: SUR 09:58 → OVERFLOW 13:41 → WEST WING 17:06
PROVIDERS: ADMIT Orthopaedic Surgery; ATTEND Orthopaedic Surgery
PROC: 0SRC0J9 Replacement of Right Knee Joint with Synthetic Substitute, Cemented, Open Approach (ICD-10-PCS; principal; 2025-05-11 11:36)
DX: M17.11 Unilateral primary osteoarthritis, right knee (principal); E66.01 Morbid (severe) obesity due to excess calories; I12.9 Hypertensive chronic kidney disease with stage 1 through stage 4 chronic kidney disease, or unspecified chronic kidney disease; N18.30 Chronic kidney disease, stage 3 unspecified; Z68.31 Body mass index [BMI] 31.0-31.9, adult; G89.18 Other acute postprocedural pain; F32.A Depression, unspecified; E78.5 Hyperlipidemia, unspecified; Z96.653 Presence of artificial knee joint, bilateral; Z96.641 Presence of right artificial hip joint; Z88.0 Allergy status to penicillin
CPT/HCPCS: 36415; 73562; 80048; 85025; 86850; 86900; 86901; 94640; 97116; 97162; 97530; G0378; J1885; J2250; J2704; J3490